=== PATIENT | female | born 1950 | race Caucasian/White ===

== ENCOUNTER 2024-09-23 14:45 | Emergency (ER) | payer MEDICARE, SELFPAY ==
[2024-09-23 15:15] VITALS: BP 173/137
[2024-09-23 16:06] LABS: Hematocrit 45.0 % (37.0-47.0); Hemoglobin 14.6 g/dL (12.0-16.0); Mean Corp Hgb Conc. 32.4 g/dL (33.0-37.0); Mean Corpuscular Volume 88.1 fL (81.0-99.0); Nucleated Red Blood Cells % 0 %; Platelet Count 325 10^3/uL (130-400); Red Cell Dist. Width 14.9 % (11.5-14.5)
[2024-09-23 16:30] LABS: ALT (SGPT) 16 U/L (0-35); AST (SGOT) 25 U/L (14-36); Albumin 4.6 g/dl (3.5-5.0); Alkaline Phosphatase 89 U/L (38-126); Blood Urea Nitrogen 27 mg/dl (7-17); Calcium 11.0 mg/dl (8.4-10.2); Carbon Dioxide 28 mmol/L (22-30); Chloride 102 mmol/L (98-107); Glucose 132 mg/dl (70-99); Potassium 4.8 mmol/L (3.5-5.1); Sodium 139 mmol/L (135-145); Total Protein 7.6 g/dl (6.3-8.2); eGFR 42.88
[2024-09-23 18:34] VITALS: BP 158/77
--- NOTE | 2024-09-23 19:39 | ED.GENMED ---
History of Present Illness
General
Chief Complaint: Hallucinations
Source: patient and family
Exam Limitations: none
Time Seen by Provider: 09/23/24 19:20
Nursing documentation reviewed up to this point in time: agreed with
History of Present Illness
History of Present Illness:
Patient is a 74-year-old female with history of hypertension, hyperlipidemia, CKD who presents to the emergency department with son with concerns of visual hallucinations over the past week. Patient does state that for the past week now she has
been seeing very 'vivid images' in the night clouds. This has occurred almost nightly over the past 7 days and she describes seeing a scene which she interprets to be that of a [place] with flashing lights.
Patient states that her and her typically eat dinner out on her balcony and are often outside as the sun goes down which is when these visualizations have occurred. Her has not been able to interpret similar images in the clouds.
Last night�they were at their son's house for dinner where she had a similar episode. Patients son, who is at bedside, states he was looking at the checo as well and saw no images similar to what the patient was describing.
Patient states that otherwise she feels completely at her baseline. She has had no other additional visual hallucinations other than that in the clouds. She denies any auditory hallucinations. No headache or recent trauma. No other neurologic
symptoms including headache, visual changes, dizziness, weakness. No infectious symptoms or dysuria
She has no history of similar symptoms. She did start taking a magnesium supplement 1 week ago.
Review of Systems
Review of Systems
Allergies reviewed?: Yes
All Other Systems: ROS reviewed and negative except as documented in HPI and ROS
Phy Exam
Physical Exam
Physical Exam:
Vitals: Hypertensive, otherwise vital signs stable. Afebrile
General: Patient is very well appearing, no acute distress. Nontoxic appearing
Skin: Warm and dry, no rashes or lesions
Head: Normocephalic, atraumatic
Eyes: Sclera nonicteric. EOMs intact. No nystagmus.
Throat: Protecting airway
Neck: Normal ROM, no cervical spine tenderness, no meningismus
Cardiac: Regular rate and rhythm, no murmurs.
Pulm: Normal respiratory effort, no wheezes, rales, rhonchi heard on exam
Abdomen: No abdominal tenderness.
Extremities: No evidence of cyanosis or edema. Strength 5/5 in bilateral upper extremities
Neuro: AAOx3. CN II-XII grossly intact on examination. Fluid speech. No focal neurologic deficits.
Psychiatric: Normal affect. Cooperative exam. Not responding to any internal stimuli.
Course
Orders/Labs/Results
Orders:
Orders
09/23/24 15:30
CMP [Comprehensive Metabolic Panel] Urgent
Complete Blood Count/With Diff Urgent
Magnesium Urgent
Comment: ADD ON
09/23/24 19:35
Add On- LAB Urgent
Tests Added?: magnesium
CT Head W/o Iv Contrast Urgent
Comment:
Reason For Exam: visual hallucinations
09/23/24 19:54
Urinalysis Reflex To Culture Urgent
Date Specimen was Collected: 09/23/24
Time Specimen was Collected: 19:45
Abnormal Lab Results
09/23/24
15:30
MCHC 32.4 L g/dL
(33.0-37.0)
RDW 14.9 H %
(11.5-14.5)
Absolute Monos (auto) 0.7 H 10^3/uL
(0.1-0.6)
Lymphocytes % 18.4 L %
(20.5-51.1)
BUN 27 H mg/dl
(7-17)
Creatinine 1.3 H mg/dL
(0.6-1.0)
Glucose 132 H mg/dl
(70-99)
Calcium 11.0 H mg/dl
(8.4-10.2)
09/23/24 15:30
09/23/24 15:30
Vital Signs
Initial and Last Documented VS:
Initial Vital Signs
Temp Pulse Resp BP Pulse Ox
98.7 F 88 18 173/137 100
09/23/24 15:15 09/23/24 15:15 09/23/24 15:15 09/23/24 15:15 09/23/24 15:15
Last Documented Vital Signs
Temp Pulse Resp BP Pulse Ox
98.7 F 66 16 151/79 98
09/23/24 15:15 09/23/24 21:47 09/23/24 21:47 09/23/24 21:47 09/23/24 21:47
MDM/Problems Addressed
Differential Diagnosis Includes:
Not limited to: Acute dehydration/electrolyte abnormality, UTI, medication side effect, central process including CVA, intracranial mass, etc.
MDM/Problems Addressed:
74-year-old female presenting with intermittent atypical visual disturbances for the past week. Patient reports visualizing somewhat vivid scenes in evening clouds over the past week. No other episodes of visual hallucinations. No auditory
hallucinations. No infectious symptoms or other neurological symptoms. Vitals and exam as above. Patient very well appearing, in no apparent distress. She is A&O x 3 without any focal neurologic deficits on exam. She has a normal affect and is not
responding to any internal stimuli on exam.
Labs obtained prior to my evaluation only significant for mild renal insufficiency � which patient and her son state has been chronic. No other acute abnormalities.
Differential broad. Symptoms not very consistent with hallucinations as only occurring when looking at the clouds in the evening. Will obtain urinalysis to rule out infection and check head CT.
Update: UA shows no evidence of infection. CT normal. Magnesium level normal.
Work up in the emergency department negative. Unsure etiology of symptoms. Do not suspect infectious process or acute neurological emergency. Feel stable for discharge home with return precautions and continued follow-up with primary care. Patient
and patient comfortable w/ plan.
Chronic conditions affecting care:
Hypertension
Acute Exacerbation and/or Progression of Chronic Illness:
Acutely hypertensive
*Radiology
Radiology exam reviewed: radiology read reviewed
*Pulse Oximetry
SaO2: 98
Oxygen Mode of Delivery: Room air
Patient hypoxic: no
*EKG
Interpreted by ED Provider?: NA
*Corporate Director Interpretation
Rate: Corporate Director- N/A
*Critical Care Note
Total Time (30-74mins, 75-104mins- exclusive of procedures): Not Applicable
ED Attending Note
-
Portions of this chart may have been created with voice recognition software.� Occasional wrong word or��sound alike� substitutions may have occurred due to the inherent limitations of voice recognition software.
Discharge Plan
Departure
Patient Disposition: Home (Routine Discharge)
Date of Disposition: 09/23/24
Time of Disposition: 22:32
Patient with high blood pressure during this ER visit?: Yes
Discharge Problem:
[place] visual hallucinations
Referrals:
NONE,* [Family Provider, Internal Medicine]
Activity Restrictions/Additional Instructions:
RETURN TO THE EMERGENCY DEPARTMENT WITH ANY CHANGE IN MENTAL STATUS, CONTINUED VISUAL HALLUCINATIONS, AUDITORY HALLUCINATIONS, INFECTIOUS SYMPTOMS, WORSENING OF CURRENT SYMPTOMS, OR ANY OTHER CONCERNS
- As discussed�your kidney function was mildly elevated in the emergency department. The creatinine was 1.3. Please have this rechecked with your primary care to ensure trending down. It is important to stay well-hydrated.
- Your head CT showed no acute abnormalities. Your urine did not show any evidence of infection.
- Follow-up with primary care provider for further evaluation/management to ensure that your symptoms are improving
Monitor your symptoms closely and return to the emergency department with any acute worsening/new symptoms or any other concerns
Interventions
Interventions:
*Risk Screen - Suicide Last Done: 09/23/24 15:15
*General Assessment Last Done: 09/23/24 15:15
*Neglect/Abuse Screening Last Done: 09/23/24 20:00
*ED- Fall Risk Assessment Last Done: 09/23/24 20:00
*ED COVID-19 Vaccine History Last Done: 09/23/24 20:00
*Nursing Disposition Last Done: 09/23/24 22:50
ED-Suicide Risk Assessment Last Done: 09/23/24 20:00
ED- Neurological Assessment Last Done: 09/23/24 20:00
ED-Psychological Assessment Last Done: 09/23/24 20:00
Discharge Date and Time
Discharge Date/Time: 09/23/24 22:51
Print Language: BULGARIAN
[2024-09-23 19:59] VITALS: BMI 31.3
[2024-09-23 20:03] LABS: Urine Character Clear (Clear)
[2024-09-23 20:08] LABS: Magnesium 1.8 mg/dl (1.6-2.3)
[2024-09-23 21:47] VITALS: BP 151/79
== END 2024-09-23 22:51 | disposition home or self-care (01) ==
LOC: EMR 14:45
PROVIDERS: Physician Assistant; Student in an Organized Health Care Education/Training Program; EMERGENCY PHYSICIAN Emergency Medicine
DX: R44.1 Visual hallucinations (principal); I12.9 Hypertensive chronic kidney disease with stage 1 through stage 4 chronic kidney disease, or unspecified chronic kidney disease; N18.9 Chronic kidney disease, unspecified; E78.5 Hyperlipidemia, unspecified
CPT/HCPCS: 99284; 70450; 80053; 81003; 83735; 85025